=== PATIENT | male | born 1955 | race Two or more races ===

== ENCOUNTER 2023-07-03 09:32 | Emergency (ER) | payer MEDICARE, MEDICAID ==
[~2023-07-03] VITALS: Ht 172.7 cm; Wt 67.1 kg
[2023-07-03] MEDS ORDERED: ATRO2DRO4 SL (09:44)
[2023-07-03] MEDS ORDERED: LORA2ORA5 SL (09:44)
[2023-07-03] MEDS ORDERED: MULT9LIQ6 GT (09:44)
[2023-07-03] MEDS ORDERED: NUTR250L61 GT (09:44)
[2023-07-03] MEDS ORDERED: MORP20SO SL (09:44)
[2023-07-03] MEDS ORDERED: ALBU2.5V38 IH (09:44)
[2023-07-03] MEDS ORDERED: GUAI400T61 GT (09:44)
[2023-07-03] MEDS ORDERED: ACET650S11 RC (09:44)
[2023-07-03] MEDS ORDERED: IPRA3AMP23 IH (09:44)
[2023-07-03] MEDS ORDERED: DIATR MEGLU/DIATRIZOATE SODIUM 120 ML BOTTLE (GASTROGRAPHIN) ONE (10:06)
[2023-07-03 12:12] VITALS: BP 142/81; TEMP 98.8; O2SAT 100
== END 2023-07-03 12:13 ==
LOC: ER 09:38
DX: K94.23 Gastrostomy malfunction (principal); I10 Essential (primary) hypertension
CPT/HCPCS: 99284; 43762; 74018; A6253; Q9963